=== PATIENT | male | born 1935 | race Caucasian/White ===

== ENCOUNTER 2020-12-05 16:56 | Emergency (ER) | payer SELFPAY ==
[~2020-12-05] VITALS: Ht 177.8 cm; Wt 82.0 kg
[2020-12-05] MEDS ORDERED: OXYMETAZOLINE HCL NASAL SPRAY 15ML BOTHNSTRLS STA (17:48)
[2020-12-05 18:14] LABS: EOSINOPHILS % 5.8 % (0.0-5.0); HEMATOCRIT. 36.8 % (42.0-52.0); HEMOGLOBIN. 12.6 g/dL (14.0-18.0); LYMPHOCYTES % 28.3 % (20.0-50.0); MEAN CORPUSCULAR HEMOGLOBIN 31.1 pg (28.0-32.0); MEAN CORPUSCULAR VOLUME 91.2 fL (80.0-94.0); MEAN PLATELET VOLUME 8.6 fl (7.4-10.4); MONOCYTES % 10.6 % (2.0-8.0); NEUTROPHILS % 54.3 % (40.0-76.0); PLATELET 149 x1000/uL (130-400); RED BLOOD CELL COUNT 4.04 mill/uL (4.7-6.1); RED CELL DISTRIBUTION WIDTH 16.5 % (11.6-14.6)
[2020-12-05 18:20] LABS: CHLORIDE 104 mEq/L (98-107)
[2020-12-05 18:42] LABS: INR 1.2
[2020-12-05 18:53] VITALS: BP 119/83
== END 2020-12-05 19:43 | disposition home or self-care (01) ==
LOC: ER 17:07
DX: R04.0 Epistaxis (principal); I11.0 Hypertensive heart disease with heart failure; I50.9 Heart failure, unspecified
CPT/HCPCS: 36415; 80053; 85025; 99283